=== PATIENT | female | born 1970 ===

== ENCOUNTER 2020-12-04 15:50 | Emergency (ER) | payer OTHER ==
[~2020-12-04] VITALS: Ht 167.6 cm; Wt 71.0 kg
--- NOTE | 2020-12-04 15:53 | NUR ---
ATTEMPTED TO CALL PT FROM LOBBY TO TRIAGE X 1. PT NIL X 1
[2020-12-04 16:05] VITALS: BP 132/78
== END 2020-12-04 16:37 | disposition home or self-care (01) ==
LOC: ED 16:00
DX: B34.9 Viral infection, unspecified (principal); Z20.822 Contact with and (suspected) exposure to COVID-19; R19.7 Diarrhea, unspecified
CPT/HCPCS: 99283; U0003; U0005